=== PATIENT | male | born 1930 | race Caucasian/White ===

== ENCOUNTER 2018-11-15 11:29 | Observation (INO) | payer MEDICARE, BC ==
[~2018-11-15] VITALS: Ht 182.9 cm; Wt 82.8 kg
[2018-11-15 12:19] LABS: BASOPHILS # (AUTO) 0.1 X10'3 (0-0.2); BASOPHILS % (AUTO) 0.7 % (0-1); EOSINOPHILS # (AUTO) 0.1 X10'3 (0-0.9); HEMATOCRIT 50.3 % (42.0-52.0); HEMOGLOBIN 16.8 g/dl (14.0-17.9); LYMPHOCYTES # (AUTO) 1.5 X10'3 (1.1-4.8); LYMPHOCYTES % (AUTO) 15.8 % (21-51); MEAN CORPUSCULAR HEMOGLOBIN 30.8 PG (27.0-31.0); MEAN CORPUSCULAR HGB CONC 33.4 % (33.0-36.5); MEAN CORPUSCULAR VOLUME 92.2 FL (78-98); MEAN PLATELET VOLUME 9.4 FL (7.4-10.4); MONOCYTES # (AUTO) 0.4 X10'3 (0-0.9); MONOCYTES % (AUTO) 4.4 % (2-12); NEUTROPHILS # (AUTO) 7.2 X10'3 (1.8-7.7); NEUTROPHILS % (AUTO) 78.1 % (42-75); PLATELET COUNT 180 X10'3 (140-440); RED BLOOD COUNT 5.45 X10'6 (4.70-6.10); RED CELL DISTRIBUTION WIDTH 13.3 % (11.5-14.5); WHITE BLOOD COUNT 9.3 X10'3 (4.5-11.0)
[2018-11-15 12:43] LABS: INR 1.1 INR; PARTIAL THROMBOPLASTIN TIME 29 SECONDS (22-32); PROTHROMBIN TIME 10.7 SECONDS (9.0-12.0)
[2018-11-15] MEDS ORDERED: famotidine 20mg tablet PO ONE (12:45)
[2018-11-15] MEDS ORDERED: aspirin 325mg tablet PO ONE (12:45)
[2018-11-15 12:48] LABS: ALANINE AMINOTRANSFERASE 39 U/L (12-78); ALBUMIN 4.1 G/DL (3.4-5.0); ALKALINE PHOSPHATASE 112 IU/L (46-116); ANION GAP 11 (8-16); ASPARTATE AMINO TRANSFERASE 21 U/L (10-37); BILIRUBIN,TOTAL 0.6 MG/DL (0.1-1.0); BLOOD UREA NITROGEN 26 MG/DL (7-18); BUN/CREATININE RATIO 19.4 (5.4-32.0); CALCIUM 9.5 MG/DL (8.5-10.1); CHLORIDE 102 MMOL/L (99-107); CREATININE 1.34 MG/DL (0.60-1.10); GLUCOSE 91 MG/DL (70-104); SODIUM 140 MMOL/L (135-145); TOTAL CARBON DIOXIDE 26.6 MMOL/L (24-32); TOTAL PROTEIN 8.3 G/DL (6.4-8.2); eGFR 51 ML/MIN
[2018-11-15] MEDS ORDERED: FLEC100T2 PO (13:04)
[2018-11-15] MEDS ORDERED: MULT-1177 (13:04)
[2018-11-15] MEDS ORDERED: ASCO500C15 PO (13:04)
[2018-11-15] MEDS ORDERED: UBID50TA3 PO (13:04)
[2018-11-15] MEDS ORDERED: DILT120T14 PO (13:04)
[2018-11-15] MEDS ORDERED: APIX5TAB3 PO (13:04)
[2018-11-15] MEDS ORDERED: ATOR10TA70 PO (13:04)
[2018-11-15] MEDS ORDERED: CALC-854 PO (13:04)
--- NOTE | 2018-11-15 13:14 | NUR ---
DR PACHECO CALLED 13:14
[2018-11-15] MEDS ORDERED: aminophylline 250mg/10ml inj. IV PRN (13:35)
[2018-11-15] MEDS ORDERED: regadenoson 0.4mg/5ml syringe IV ONE (13:35)
[2018-11-15] MEDS ORDERED: metoprolol tartrate 1mg/ml inj IV PRN (13:35)
[2018-11-15] MEDS ORDERED: nitroGLYCERIN 0.4mg SUBLingual tab SL PRN (13:35)
[2018-11-15] MEDS ORDERED: ondansetron/PF 4mg/2ml inj IV PRN (13:35)
[2018-11-15] MEDS ORDERED: mag hydrox/Alum hydrox/simeth 30ml oral suspension PO PRN (13:35)
[2018-11-15] MEDS ORDERED: acetaminophen 325mg tablet PO PRN ×2 (13:35)
[2018-11-15] MEDS ORDERED: HYDROcodone/acetaminophen 5mg/325mg tablet PO PRN (13:35)
[2018-11-15] MEDS ORDERED: magnesium hydroxide 30ml (MOM) UD suspension PO PRN (13:35)
--- NOTE | 2018-11-15 13:43 | NUR ---
ECHO ENROUTE 1346
[2018-11-15] MEDS: diltiazem CD 120mg capsule (once-daily) PO SCH (13:56)
[2018-11-15 16:00] VITALS: BP 171/80
--- NOTE | 2018-11-15 16:00 | NUR ---
Patient in room PCU 3013. I have received report from JESSICA Aquino and had the opportunity to ask questions and assume patient care. Patient stable, resting comfortably in bed with family at bedside.
[2018-11-15 18:00] VITALS: BP 172/77
--- NOTE | 2018-11-15 18:25 | NUR ---
Patient in room PCU 3013. I have received report from Marcia LOPEZ and had the opportunity to ask questions and assume patient care.
--- NOTE | 2018-11-15 18:30 | NUR ---
Problems reprioritized. Patient report given, questions answered & plan of care reviewed with JESSICA Gill.
[2018-11-15] MEDS ORDERED: temazepam 15mg capsule PO PRN (21:00)
[2018-11-15] MEDS: calcium carbonate/vitamin D3 tablet PO SCH (21:23)
[2018-11-15] MEDS: flecainide 50mg tablet PO SCH (21:23)
[2018-11-15] MEDS: apixaban 5mg tablet PO SCH (21:23)
[2018-11-15 22:00] VITALS: BP 136/88
[2018-11-16] VITALS (12 sets, daily range): BP systolic 111–175; BP diastolic 66–81
--- NOTE | 2018-11-16 06:44 | NUR ---
Patient in room U 3013. I have received report from MAGDY LOPEZ and had the opportunity to ask questions and assume patient care. Addendum: 11/16/18 at 0644 by Phoebe Aquino RN DISREGARD THIS NOTE, WRONG PT
--- NOTE | 2018-11-16 06:44 | NUR ---
Problems reprioritized. Patient report given, questions answered & plan of care reviewed with Seema LOPEZ.
--- NOTE | 2018-11-16 06:45 | NUR ---
Patient in room PCU 3013. I have received report from SREE LOPEZ and had the opportunity to ask questions and assume patient care.
[2018-11-16] MEDS: apixaban 5mg tablet PO SCH (07:06)
[2018-11-16] MEDS: calcium carbonate/vitamin D3 tablet PO SCH (07:06)
[2018-11-16] MEDS: diltiazem CD 120mg capsule (once-daily) PO SCH (07:06)
[2018-11-16] MEDS: flecainide 50mg tablet PO SCH (07:07)
[2018-11-16] MEDS ORDERED: atorvastatin 10mg tablet PO SCH (08:00)
[2018-11-16] MEDS ORDERED: ascorbic acid 500mg tablet PO SCH (08:00)
[2018-11-16] MEDS ORDERED: aminophylline inj. 10 ML IV ONE (09:08)
[2018-11-16] MEDS ORDERED: regadenoson 0.4mg/5ml syringe IV ONE (09:08)
[2018-11-16 12:12] LABS: BASOPHILS % (AUTO) 0.3 % (0-1); EOSINOPHILS # (AUTO) 0.1 X10'3 (0-0.9); EOSINOPHILS % (AUTO) 0.8 % (0-6); HEMOGLOBIN 16.2 g/dl (14.0-17.9); LYMPHOCYTES # (AUTO) 1.6 X10'3 (1.1-4.8); LYMPHOCYTES % (AUTO) 16.6 % (21-51); MEAN CORPUSCULAR HEMOGLOBIN 30.4 PG (27.0-31.0); MEAN CORPUSCULAR VOLUME 92.1 FL (78-98); MEAN PLATELET VOLUME 9.9 FL (7.4-10.4); MONOCYTES # (AUTO) 0.6 X10'3 (0-0.9); MONOCYTES % (AUTO) 6.2 % (2-12); NEUTROPHILS # (AUTO) 7.6 X10'3 (1.8-7.7); NEUTROPHILS % (AUTO) 76.1 % (42-75); PLATELET COUNT 203 X10'3 (140-440); RED BLOOD COUNT 5.32 X10'6 (4.70-6.10); RED CELL DISTRIBUTION WIDTH 13.2 % (11.5-14.5); WHITE BLOOD COUNT 9.9 X10'3 (4.5-11.0)
[2018-11-16 12:23] LABS: ALBUMIN 3.9 G/DL (3.4-5.0); ANION GAP 14 (8-16); BLOOD UREA NITROGEN 21 MG/DL (7-18); BUN/CREATININE RATIO 16.2 (5.4-32.0); CALCIUM 9.5 MG/DL (8.5-10.1); CHLORIDE 104 MMOL/L (99-107); GLUCOSE 88 MG/DL (70-104); POTASSIUM 4.2 MMOL/L (3.5-5.1); SODIUM 142 MMOL/L (135-145); TOTAL CARBON DIOXIDE 23.6 MMOL/L (24-32); eGFR 52 ML/MIN
--- NOTE | 2018-11-16 13:51 | NUR ---
PT STATES THAT HE DOES NOT WANT TO STAY AND WAIT TO SEE [facility]. HE STATES THAT HE WILL SEE HIS OWN [facility] M[facility]. HE VERBALIZED UNDERSTANDING OF THE RISKS OF LEAVING AND IS AWARE HE NEEDS TO COME BACK TO ER IF ANY ISSUES ARISE. HE SIGNED THE AMA FORM AND LEAVING FACILITY WITH . IV DC CANULA INTACT.
== END 2018-11-16 13:50 | disposition left against medical advice (07) ==
LOC: ER 11:30 → ED HOLD 13:31 → PCU 3S 16:00
PROVIDERS: ADMIT Hospitalist; ATTEND Hospitalist
DX: R07.9 Chest pain, unspecified (principal); R01.1 Cardiac murmur, unspecified; I48.0 Paroxysmal atrial fibrillation; I10 Essential (primary) hypertension; E78.00 Pure hypercholesterolemia, unspecified
CPT/HCPCS: 36415; 71045; 78452; 80048; 80053; 84484; 85025; 85610; 85730; 87070; 93005; 93017; 93306; 99284; A9500; G0378; J0280

== ENCOUNTER 2021-09-20 10:49 | Day surgery (SDC) | payer MEDICARE, BC ==
[2021-09-15 11:00] LABS: BASOPHILS % (AUTO) 0.4 % (0-1); EOSINOPHILS # (AUTO) 0.1 X10'3 (0-0.9); HEMATOCRIT 43.9 % (42.0-52.0); HEMOGLOBIN 14.7 g/dl (14.0-17.9); LYMPHOCYTES # (AUTO) 1.6 X10'3 (1.1-4.8); LYMPHOCYTES % (AUTO) 22.2 % (21-51); MEAN CORPUSCULAR HEMOGLOBIN 31.3 PG (27.0-31.0); MEAN CORPUSCULAR HGB CONC 33.6 g/dL (33.0-36.5); MEAN CORPUSCULAR VOLUME 93.3 FL (78-98); MEAN PLATELET VOLUME 9.5 FL (7.4-10.4); MONOCYTES # (AUTO) 0.6 X10'3 (0-0.9); MONOCYTES % (AUTO) 7.9 % (2-12); NEUTROPHILS % (AUTO) 67.5 % (42-75); PLATELET COUNT 174 X10'3 (140-440); RED CELL DISTRIBUTION WIDTH 14.2 % (11.5-14.5); WHITE BLOOD COUNT 7.4 X10'3 (4.5-11.0)
[2021-09-15 11:08] LABS: PARTIAL THROMBOPLASTIN TIME 30 SECONDS (22-32)
[2021-09-15 11:10] LABS: ALBUMIN 3.8 G/DL (3.4-5.0); ANION GAP 11 (8-16); BLOOD UREA NITROGEN 21 MG/DL (7-18); BUN/CREATININE RATIO 17.4 (5.4-32.0); CALCIUM 8.8 MG/DL (8.5-10.1); CHLORIDE 106 MMOL/L (99-107); CREATININE 1.21 MG/DL (0.60-1.10); GLUCOSE 88 MG/DL (70-104); POTASSIUM 3.9 MMOL/L (3.5-5.1); SODIUM 142 MMOL/L (135-145); TOTAL CARBON DIOXIDE 24.6 MMOL/L (24-32); eGFR 57 ML/MIN
[2021-09-20] VITALS (9 sets, daily range): BP systolic 124–151; BP diastolic 49–74
[~2021-09-20] VITALS: Ht 180.3 cm; Wt 76.6 kg
[~2021-09-20 10:49] MED LIST: APIX5TAB3 PO; ASCO500C18 PO; ATOR10TA70 PO; CALC-854 PO; DILT120T14 PO; FLEC100T2 PO; MULT-1177; UBID50TA3 PO
[2021-09-20] MEDS ORDERED: diphenhydrAMINE 25mg capsule PO PRN (11:10)
[2021-09-20] MEDS ORDERED: normal saline 1,000 ML IV SCH (11:10)
[2021-09-20] MEDS ORDERED: LORazepam 0.5 MG tablet PO PRN (11:10)
[2021-09-20] MEDS ORDERED: nitroGLYCERIN-Tridil 50MG/D5W 250 ML IV ONE (12:27)
[2021-09-20] MEDS ORDERED: verapamil 2.5 mg/ml inj IV ONE (12:27)
[2021-09-20] MEDS ORDERED: midazolam 1 mg/ML 2ml injection ONE (12:27)
[2021-09-20] MEDS ORDERED: heparin 1,000unit/ml 10ml vial 10 ML ONE ×2 (12:28→13:59)
[2021-09-20] MEDS ORDERED: iohexol 350MG/ML 100ml bottle IV ONE ×2 (12:28→13:57)
[2021-09-20] MEDS ORDERED: LIDOcaine 1% (10mg/ml)w/preservative injection 20ml MDV ONE (12:28)
[2021-09-20] MEDS ORDERED: fentaNYL/PF 50MCG/1 ML 2ML syringe ONE (12:28)
[2021-09-20] MEDS ORDERED: iohexol 350 MG/ML 50ML vial IV ONE ×3 (14:03→14:37)
[2021-09-20] MEDS ORDERED: clopidogrel 300mg tablet ONE (14:40)
[2021-09-20] MEDS ORDERED: ondansetron/PF 4mg/2ml inj IV PRN (15:25)
[2021-09-20] MEDS ORDERED: OXAZEpam 15mg capsule PO PRN (15:25)
[2021-09-20] MEDS ORDERED: HYDROcodone/acetaminophen 5mg/325mg tablet PO PRN (15:25)
[2021-09-20] MEDS ORDERED: HYDROcodone/acetaminophen 10/325mg tab PO PRN (15:25)
[2021-09-20] MEDS ORDERED: proCHLORperazine 10 MG/2 ml inj IV PRN (15:25)
== END 2021-09-20 20:25 | disposition home or self-care (01) ==
LOC: SSTAY O 10:49
PROVIDERS: ATTEND Internal Medicine Interventional Cardiology
DX: I35.0 Nonrheumatic aortic (valve) stenosis (principal); I25.10 Atherosclerotic heart disease of native coronary artery without angina pectoris; I10 Essential (primary) hypertension; E78.5 Hyperlipidemia, unspecified; I48.91 Unspecified atrial fibrillation; I65.29 Occlusion and stenosis of unspecified carotid artery; I71.4 Abdominal aortic aneurysm, without rupture; Z79.01 Long term (current) use of anticoagulants; Z79.899 Other long term (current) drug therapy; Z88.0 Allergy status to penicillin; Z98.42 Cataract extraction status, left eye; Z98.41 Cataract extraction status, right eye; Z98.890 Other specified postprocedural states; Z72.89 Other problems related to lifestyle; Z80.6 Family history of leukemia
CPT/HCPCS: 36415; 80048; 85025; 85610; 85730; 93005; 93454; 99152; 99153; C1725; C1751; C1769; C1874; C1894; C9600; J1644; J2001; J2250; J3010; J7030; J7040; Q0163; Q9967; A4620; A5120; C9601; J3490

== ENCOUNTER 2021-10-05 09:10 | Outpatient (CLI) | payer MEDICARE, BC ==
[2021-10-05 10:03] LABS: BASOPHILS % (AUTO) 0.5 % (0-1); EOSINOPHILS # (AUTO) 0.1 X10'3 (0-0.9); EOSINOPHILS % (AUTO) 1.6 % (0-6); HEMATOCRIT 42.7 % (42.0-52.0); HEMOGLOBIN 14.6 g/dl (14.0-17.9); LYMPHOCYTES # (AUTO) 1.4 X10'3 (1.1-4.8); LYMPHOCYTES % (AUTO) 17.5 % (21-51); MEAN CORPUSCULAR HEMOGLOBIN 31.8 PG (27.0-31.0); MEAN CORPUSCULAR HGB CONC 34.2 g/dL (33.0-36.5); MEAN CORPUSCULAR VOLUME 92.8 FL (78-98); MEAN PLATELET VOLUME 8.6 FL (7.4-10.4); MONOCYTES # (AUTO) 0.7 X10'3 (0-0.9); MONOCYTES % (AUTO) 8.5 % (2-12); NEUTROPHILS # (AUTO) 5.9 X10'3 (1.8-7.7); NEUTROPHILS % (AUTO) 71.9 % (42-75); PLATELET COUNT 203 X10'3 (140-440); RED BLOOD COUNT 4.61 X10'6 (4.70-6.10); RED CELL DISTRIBUTION WIDTH 13.8 % (11.5-14.5); WHITE BLOOD COUNT 8.2 X10'3 (4.5-11.0)
[2021-10-05 10:17] LABS: PARTIAL THROMBOPLASTIN TIME 28 SECONDS (22-32)
[2021-10-05 10:18] LABS: ALANINE AMINOTRANSFERASE 27 U/L (12-78); ALBUMIN 3.8 G/DL (3.4-5.0); ALKALINE PHOSPHATASE 96 IU/L (46-116); ANION GAP 12 (8-16); ASPARTATE AMINO TRANSFERASE 22 U/L (10-37); BILIRUBIN,TOTAL 0.6 MG/DL (0.1-1.0); BLOOD UREA NITROGEN 22 MG/DL (7-18); BUN/CREATININE RATIO 16.5 (5.4-32.0); CALCIUM 9.1 MG/DL (8.5-10.1); CHLORIDE 106 MMOL/L (99-107); CREATININE 1.33 MG/DL (0.60-1.10); GLUCOSE 91 MG/DL (70-104); POTASSIUM 4.1 MMOL/L (3.5-5.1); SODIUM 143 MMOL/L (135-145); TOTAL CARBON DIOXIDE 25.1 MMOL/L (24-32); TOTAL PROTEIN 7.6 G/DL (6.4-8.2); eGFR 51 ML/MIN
[2021-10-05] MEDS ORDERED: CEPH250T PO (23:14)
== END 2021-10-05 23:59 | disposition home or self-care (01) ==
LOC: RT 09:10
PROVIDERS: ATTEND Internal Medicine Cardiovascular Disease
DX: M47.816 Spondylosis without myelopathy or radiculopathy, lumbar region (principal); E27.8 Other specified disorders of adrenal gland; I70.8 Atherosclerosis of other arteries; I72.2 Aneurysm of renal artery; I70.0 Atherosclerosis of aorta; I65.29 Occlusion and stenosis of unspecified carotid artery; M85.88 Other specified disorders of bone density and structure, other site; I31.1 Chronic constrictive pericarditis; Z20.822 Contact with and (suspected) exposure to COVID-19
CPT/HCPCS: 36415; 71046; 71275; 74174; 80053; 85025; 85610; 85730; 87635; 94010; 94727; 94729; C9803; 99281; Q9967

== ENCOUNTER 2021-10-05 12:48 | Emergency (ER) | payer MEDICARE, BC ==
[~2021-10-05] VITALS: Ht 182.9 cm; Wt 73.2 kg
[2021-10-05 13:00] VITALS: BP 166/74
[2021-10-05] MEDS ORDERED: CEPH250T PO (23:14)
== END 2021-10-05 16:48 | disposition left against medical advice (07) ==
LOC: ER 12:48
DX: R04.0 Epistaxis (principal); I48.91 Unspecified atrial fibrillation; E78.00 Pure hypercholesterolemia, unspecified; I10 Essential (primary) hypertension; Z88.0 Allergy status to penicillin; Z79.899 Other long term (current) drug therapy
CPT/HCPCS: 99281

== ENCOUNTER 2021-10-05 21:18 | Emergency (ER) | payer MEDICARE, BC ==
[~2021-10-05] VITALS: Ht 182.9 cm; Wt 72.7 kg
[2021-10-05 21:33] VITALS: BP 164/73
[2021-10-05] MEDS ORDERED: oxymetazoline 15 ML nasal spray NS ONE (22:50)
[2021-10-05] MEDS ORDERED: LIDOcaine Viscous 15ml cup MM ONE (22:50)
[2021-10-05] MEDS ORDERED: tranexamic acid 100mg/ml inj. TP ONE (22:50)
[2021-10-05] MEDS ORDERED: CEPH250T PO (23:14)
== END 2021-10-05 23:20 | disposition home or self-care (01) ==
LOC: ER 21:18
DX: R04.0 Epistaxis (principal); I48.91 Unspecified atrial fibrillation; E78.00 Pure hypercholesterolemia, unspecified; I25.10 Atherosclerotic heart disease of native coronary artery without angina pectoris; I10 Essential (primary) hypertension; Z98.890 Other specified postprocedural states; Z88.0 Allergy status to penicillin; Z79.2 Long term (current) use of antibiotics; Z79.899 Other long term (current) drug therapy
CPT/HCPCS: 30901; 99284

== ENCOUNTER 2021-10-09 07:17 | Emergency (ER) | payer MEDICARE, BC ==
[~2021-10-09] VITALS: Ht 182.9 cm; Wt 71.8 kg
[~2021-10-09 07:17] MED LIST changes: +CEPH250T PO
[2021-10-09 07:33] VITALS: BP 157/67
[2021-10-09] MEDS: phenylephrine 0.5% nose drops 15ml NS ONE (08:35)
[2021-10-09] MEDS: cocaine 4% topical solution 4ml bottle MM ONE (08:35)
== END 2021-10-09 08:55 | disposition home or self-care (01) ==
LOC: ER 07:18
DX: R04.0 Epistaxis (principal); I48.91 Unspecified atrial fibrillation; I25.10 Atherosclerotic heart disease of native coronary artery without angina pectoris; E78.00 Pure hypercholesterolemia, unspecified; I10 Essential (primary) hypertension; Z79.01 Long term (current) use of anticoagulants; Z88.0 Allergy status to penicillin; Z79.899 Other long term (current) drug therapy; Z87.891 Personal history of nicotine dependence; Z95.5 Presence of coronary angioplasty implant and graft
CPT/HCPCS: 30901; 99284